=== PATIENT | female | born 1960 | race Caucasian/White ===

== ENCOUNTER 2017-04-21 18:11 | Emergency (ER) | payer MEDICAID ==
[2017-04-21] MEDS ORDERED: Sodium Chloride 0.9% 1,000 ML IV ONE (18:33)
[2017-04-21] MEDS ORDERED: Sodium Chloride 0.9% 10 ML Syringe FLUSH PRN (18:36)
[2017-04-21] MEDS ORDERED: Iopamidol 755 Mg/ML 75 ML Bottle IV ONE (18:37)
--- NOTE | 2017-04-21 18:37 | EDM.PDOC ---
ED HPI GENERAL MEDICAL PROBLEM - General Chief Complaint: General Stated Complaint: GENERAL Time Seen by Provider: 04/21/17 18:28 Source of Information: Reports: Patient History Limitations: Reports: Other (anxious) - History of Present Illness INITIAL COMMENTS - FREE TEXT/NARRATIVE: 57 w f with h/o chronic ETOH abuse, COPD, hematemesis 10 years ago, was seen in the clinic due to N/V in the past 9 days, unable to eat and painless jaundice. Last etoh intake this pm. Pt denies any pain or discomfort but is very anxious. Pt denies any other acute medical issues. Onset: Gradual Onset Date: 04/10/17 Onset Time: 07:00 Duration: Day(s):, Getting Worse Location: Reports: Abdomen Quality: Reports: Other (no paijn) Severity: Moderate Improves with: Reports: None Worsens with: Reports: None Context: Reports: Other (etoh) - Related Data Allergies Allergy/AdvReac Type Severity Reaction Status Date / Time codeine Allergy Itching Verified 04/21/17 18:20 Home Meds: Home Meds Albuterol [Proventil HFA] 2 puff INH Q4H PRN 04/21/14 [History] Famotidine [Pepcid AC] 20 mg PO Q48H 04/21/14 [History] Budesonide/Formoterol Fumarate [Symbicort 160-4.5 Mcg Inhaler] 2 puff IH BID [History] guaiFENesin/Codeine Phosphate [Guaifenesin AC Cough Syrup] 10 ml PO Q4H PRN [History] Acetaminophen [Tylenol Extra Strength] 1,000 mg PO TID PRN 01/17/17 [History] Albuterol Sulfate 3 ml IH Q4H PRN 01/17/17 [History] Benzonatate 200 mg PO TID 01/17/17 [History] Multivitamin [Daily Re] 1 tab PO DAILY 01/17/17 [History] Folic Acid 1 mg PO DAILY #30 tab 04/21/17 [Rx] Iron 18 mg PO DAILY 04/21/17 [History] Multivitamin with Minerals [Multiple Vitamin] 1 tab PO DAILY #30 tablet [Rx] Omeprazole 20 mg PO DAILY #20 cap.cr 04/21/17 [Rx] Ondansetron [Zofran ODT] 4 mg PO Q6H PRN #20 tab.dis 04/21/17 [Rx] Potassium Chloride [Klor-Con 10] 10 meq PO DAILY 04/21/17 [History] Thiamine [Vitamin B-1] 100 mg PO BEDTIME #30 tab 04/21/17 [Rx] Past Medical History HEENT History: Reports: Impaired Vision Other HEENT History: states that she had an infection in her eyes and throat last week. Cardiovascular History: Reports: Heart Failure Respiratory History: Reports: Asthma, COPD Other Respiratory History: hx of pneumonia Gastrointestinal History: Reports: Gastritis Other Gastrointestinal History: hx of bleeding ulcers, divetriculiti, liver disease Genitourinary History: Reports: Renal Calculus Other Genitourinary History: states that she had hx of kidney failure. 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 Musculoskeletal History: Reports: Back Pain, Chronic Psychiatric History: Reports: Anxiety, Depression Hematologic History: Reports: Anemia Other Hematologic History: states that she had previous transfusions. - Infectious Disease History Infectious Disease History: Reports: Chicken Pox, Hepatitis non A,B,C - Past Surgical History GI Surgical History: Reports: Cholecystectomy, Colonoscopy Female Surgical History: Reports: Cervical Conization Social & Family History - Family History Cardiac: Reports: Other (See Below) Other Cardiac Family History: heart attack Respiratory: Reports: Asthma GI: Reports: None Musculoskeletal: Reports: None Neurological: Reports: CVA Psychiatric: Reports: None Endocrine/Metabolic: Reports: None Hematologic: Reports: None Immunologic: Reports: None Oncologic: Reports: Other (See Below) Other Oncologic Family History: throat, lung, breast, brain, pancreatic - Tobacco Use Smoking Status *Q: Current Every Day Smoker Years of Tobacco use: 40 Packs/Tins Daily: 0.5 Used Tobacco, but Quit: Yes Month Tobacco Last Used: 9 days ago - Caffeine Use Caffeine Use: Reports: Coffee - Alcohol Use Days Per Week of Alcohol Use: 4 Number of Drinks Per Day: 2 Total Drinks Per Week: 8 - Recreational Drug Use Recreational Drug Use: No ED ROS GENERAL - Review of Systems Review Of Systems: See Below Constitutional: Reports: Weight Loss HEENT: Reports: No Symptoms Respiratory: Reports: No Symptoms Cardiovascular: Reports: No Symptoms Endocrine: Reports: No Symptoms GI/Abdominal: Reports: Nausea, Vomiting : Reports: No Symptoms Musculoskeletal: Reports: No Symptoms Skin: Reports: Jaundice Neurological: Reports: Tremors Psychiatric: Reports: Anxiety Hematologic/Lymphatic: Reports: No Symptoms Immunologic: Reports: No Symptoms ED EXAM, GENERAL - Physical Exam Exam: See Below Exam Limited By: Other (anxious, resting tremor) General Appearance: Alert, Mild Distress, Thin Eye Exam: Bilateral Eye: Conjunctival Injection (Jaundice) Ears: Normal External Exam Ear Exam: Bilateral Ear: Auricle Normal Nose: Normal Inspection, Normal Mucosa Throat/Mouth: Other (dry mucosal membranes) Head: Atraumatic, Normocephalic Neck: Normal Inspection, Supple, Non-Tender, Full Range of Motion Respiratory/Chest: No Respiratory Distress, Lungs Clear, Normal Breath Sounds, No Accessory Muscle Use Cardiovascular: Normal Peripheral Pulses, Tachycardia Peripheral Pulses: 1+: Femoral (L), Femoral (R) GI/Abdominal: Normal Bowel Sounds, Tender, Mass (RUQ of abdomen) (Female) Exam: Deferred Rectal (Female) Exam: Deferred Back Exam: Normal Inspection, Full Range of Motion Extremities: Normal Inspection, Normal Range of Motion, Non-Tender, No Pedal Edema, Normal Capillary Refill Neurological: Alert, Oriented, CN II-XII Intact, Normal Cognition, Normal Gait, Memory Loss Recent Events Psychiatric: Anxious Skin Exam: Jaundice Lymphatic: No Adenopathy EKG INTERPRETATION EKG Date: 04/21/17 Time: 19:40 Rhythm: NSR Rate (beats/min): 75 [place]: normal P-wave: present QRS: normal ST-T: normal QT: normal Comparison: NA - no prior EKG Course - Vital Signs Text/Narrative:: 57 w f with h/o chronic ETOH abuse, COPD, hematemesis 10 years ago, was seen in the clinic due to N/V in the past 9 days, unable to eat and painless jaundice. Last etoh intake this pm. Pt denies any pain or discomfort but is very anxious. Pt denies any other acute medical issues. PE: tremor, thin wf in no acute distress, painless jaundice, anxiety Labs: Elevated liver enzymes. Imaging: severe liver cirrhosis Impression: Chronic ETOH abuse, Painless jaundice, H/O hematemesis, elevated liver enzymes, Severe liver cirrhosis with portal hypertension. tremor poss ETOH withdrawal. Tx: Ativan, Zofran, NS. Reexam: Pt was eable to eat well in the ed and requested to be discharged with her friend to home. Plan: D/C with instructions Last Recorded V/S: Last Vital Signs Temp 36.8 C 04/21/17 18:28 Pulse 111 H 04/21/17 21:09 Resp 16 04/21/17 18:28 BP 110/77 04/21/17 21:09 Pulse Ox 99 04/21/17 18:28 - Orders/Labs/Meds Orders: Active Orders 24 hr Category Date Time Status EKG Documentation Completion [RC] ASDIRECTED Care 04/21/17 19:30 Active Abdomen Pelvis w Cont [CT] Stat Exams 04/21/17 18:34 Taken Saline Lock Insert [OM.PC] Routine Oth 04/21/17 18:36 Ordered EKG 12 Lead [EK] Routine Ther 04/21/17 19:30 Ordered Labs: Laboratory Tests 04/21/17 04/21/17 04/21/17 Range/Units 18:50 18:50 18:50 PT 13.0 H (8.7-11.1) INR 1.28 H (0.89-1.13) Amylase 57 (28-100) U/L Ethyl Alcohol < 0.01 (<0.01) % Meds: Medications Discontinued Medications Generic Name Dose Route Start Last Admin Trade Name Amara PRN Reason Stop Dose Admin Folic Acid 1 mg 04/21/17 20:24 04/21/17 20:40 Folic Acid PO 04/21/17 20:25 1 mg ONETIME ONE Administration Sodium Chloride 1,000 mls @ 999 mls/hr 04/21/17 18:33 04/21/17 19:11 Normal Saline IV 04/21/17 19:33 999 mls/hr .BOLUS ONE Administration Iopamidol 75 ml 04/21/17 18:37 04/21/17 19:34 Isovue-370 (76%) IV 04/21/17 18:38 69 ml ONETIME ONE Administration Lorazepam 0.5 mg 04/21/17 18:50 04/21/17 19:09 Ativan IVPUSH 04/21/17 18:51 0.5 mg ONETIME ONE Administration Lorazepam 5 mg 04/21/17 20:40 04/21/17 20:44 Ativan IVPUSH 04/21/17 20:41 Not Given Q4H STA Lorazepam 0.5 mg 04/21/17 20:44 04/21/17 20:49 Ativan IVPUSH 04/21/17 20:45 0.5 mg ONETIME STA Administration Multivitamins/Minerals/Vitamin C 1 tab 04/21/17 20:24 04/21/17 20:40 Tab-A-Er PO 04/21/17 20:25 1 tab DAILY STA Administration Ondansetron HCl 8 mg 04/21/17 18:49 04/21/17 19:11 Zofran IVPUSH 04/21/17 18:50 8 mg ONETIME ONE Administration Potassium Chloride 40 meq 04/21/17 19:21 04/21/17 19:25 Klor-Con M20 PO 04/21/17 19:22 40 meq ONETIME ONE Administration Sodium Chloride 10 ml 04/21/17 18:36 04/21/17 20:52 Saline Flush FLUSH 10 ml ASDIRECTED PRN Administration Keep Vein Open Thiamine HCl 100 mg 04/21/17 20:24 04/21/17 20:40 Vitamin B-1 PO 04/21/17 20:25 100 mg ONETIME ONE Administration Departure - Departure Time of Disposition: 20:45 Disposition: Home, Self-Care 01 Condition: good Clinical Impression: Jaundice of recent onset, Hypokalemia - Discharge Information Prescriptions: Folic Acid 1 mg PO DAILY #30 tab Multivitamin with Minerals [Multiple Vitamin] 1 tab PO DAILY #30 tablet Omeprazole 20 mg PO DAILY #20 cap.cr Ondansetron [Zofran ODT] 4 mg PO Q6H PRN #20 tab.dis PRN Reason: Nausea Thiamine [Vitamin B-1] 100 mg PO BEDTIME #30 tab Referrals: Daniel Amin MD [Primary Care Provider] - Forms: ED Department Discharge Additional Instructions: Please refain from ETOH and tobacco use. Please take Thiamin, Folic acid and MVT daily, please follow up with US sonogram this Monday. Please come back to the ed if your symptoms get worse acutely. - My Orders Last 24 Hours: My Active Orders 04/21/17 18:34 Abdomen Pelvis w Cont [CT] Stat 04/21/17 18:36 Saline Lock Insert [OM.PC] Routine 04/21/17 19:30 EKG Documentation Completion [RC] ASDIRECTED EKG 12 Lead [EK] Routine - Assessment/Plan Last 24 Hours: My Active Orders 04/21/17 18:34 Abdomen Pelvis w Cont [CT] Stat 04/21/17 18:36 Saline Lock Insert [OM.PC] Routine 04/21/17 19:30 EKG Documentation Completion [RC] ASDIRECTED EKG 12 Lead [EK] Routine
[2017-04-21] MEDS ORDERED: Ondansetron 4 MG/2 ML SDV IVPUSH ONE (18:49)
[2017-04-21] MEDS ORDERED: LORazepam 2 MG/ML MDV IVPUSH ONE (18:50)
[2017-04-21] MEDS ORDERED: Potassium Chloride 20 MEQ Tab.ER PO ONE (19:21)
[2017-04-21] MEDS ORDERED: Thiamine 100 MG Tab PO ONE (20:24)
[2017-04-21] MEDS ORDERED: Multivitamin Tab PO STA (20:24)
[2017-04-21] MEDS ORDERED: Folic Acid 1 MG Tab PO ONE (20:24)
[2017-04-21] MEDS ORDERED: LORazepam 2 MG/ML MDV IVPUSH STA ×2 (20:40→20:44)
[2017-04-21 21:09] VITALS: BP 110/77
== END 2017-04-21 21:10 | disposition home or self-care (01) ==
LOC: FB.ED 18:11
DX: R17 Unspecified jaundice (principal); E87.6 Hypokalemia; J44.9 Chronic obstructive pulmonary disease, unspecified; K92.0 Hematemesis; F10.10 Alcohol abuse, uncomplicated; K70.30 Alcoholic cirrhosis of liver without ascites; I50.9 Heart failure, unspecified; F41.9 Anxiety disorder, unspecified; F32.9 Major depressive disorder, single episode, unspecified; Z90.49 Acquired absence of other specified parts of digestive tract; Z79.899 Other long term (current) drug therapy; Z88.5 Allergy status to narcotic agent
CPT/HCPCS: 36415; 74177; 80053; 82150; 85025; 85610; 93005; 96361; 96374; 96375; 96376; 99285; A9270; G0480; J2060; J2405; J7040; J7050; Q9967

== ENCOUNTER 2018-01-09 15:56 | Emergency (ER) | payer MEDICAID ==
[2018-01-09] MEDS ORDERED: Ondansetron 4 MG/2 ML SDV IVPUSH ONE (17:00)
[2018-01-09] MEDS ORDERED: Sodium Chloride 0.9% 10 ML Syringe FLUSH PRN (17:00)
[2018-01-09] MEDS ORDERED: Sodium Chloride 0.9% 1,000 ML IV ONE (17:00)
[2018-01-09] MEDS ORDERED: Sodium Chloride 0.9% 250 ML IV SCH (18:00)
[2018-01-09] MEDS ORDERED: Acetaminophen 325 MG Tab PO PRN (18:36)
[2018-01-09] MEDS ORDERED: Ondansetron 4 MG Tab.DIS PO PRN (18:36)
[2018-01-10 14:16] VITALS: BP 101/65
--- NOTE | 2018-01-11 12:33 | ER ---
DATE SEEN: 01/09/2018 TIME SEEN: The patient was seen at 1655 hours. CHIEF COMPLAINT: "Black poop". HISTORY OF PRESENT ILLNESS: This is a 57-year-old woman, who is a known alcoholic and had alcoholic liver disease cirrhosis, who lives at [facility], was seen by Dr. Amin today and noted to have black stools, sent from [facility] to the ED for further evaluation. She has had black poops for 4 days. She feels slightly lightheaded. Has not drunk alcohol for a year. Had asthma attack a week ago. Otherwise, has slightly croupy cough. She denies abdominal pain. CURRENT MEDICATIONS: 1. Thiamin 100 mg at bedtime. 2. Spironolactone 50 mg b.i.d. 3. Potassium chloride 10 mEq daily. 4. Omeprazole 20 mg daily. 5. Multivitamin with mineral. 6. Lactulose 10 g b.i.d. 7. Iron 18 mg daily. 8. Lasix 40 mg daily. 9. Folic acid 1 mg daily. 10.Fluticasone salmeterol 113/14 one puff b.i.d. 11.Budesonide and formoterol (Symbicort) 160/4.5 mcg. 12.Albuterol 2 puffs q.4 hours. ALLERGIES: Codeine. REVIEW OF SYSTEMS: The patient denies headache, neck stiffness, shortness of breath, compromise in vision, difficulty with her teeth. Denies chest pain, irregular heartbeat. Denies abdominal pain, but she has had melena. Denies abdominal discomfort or GERD and has not drunk alcohol for a year. Denies back pain, frequency, urgency, or dysuria. She has mild muscle aches. Mild joint aches. Neuro, negative. No history of seizures or DTs. No history of esophageal varices. PHYSICAL EXAMINATION: VITAL SIGNS: Blood pressure 100/84, heart rate 87, respirations 20, oxygen saturation 98%, and temperature is 37.2. GENERAL: Alert woman, looks older than her age, some loss of subcutaneous tissue noticed in her face. HEENT: PERRLA intact. No nystagmus. Pharynx without abnormality. No blood in her throat. NECK: No cervical adenopathy or thyromegaly or accessory muscle breathing. LUNGS: Clear with rales at the bases posterior. HEART: S1, S2. No irregular rate and rhythm. No tachycardia. No tachypnea. ABDOMEN: Soft. No hepatosplenomegaly. Bowel sounds present. No discomfort. RECTAL: Performed with nurse in room and has one spot of stool which is positive for Hemoccult. MUSCULOSKELETAL: Muscle strength is good. DIAGNOSES: 1. GI bleed proximal to the lower third of the duodenum (probably esophageal varices and/or gastric gastritis). 2. The patient needs an endoscopy. 3. Anemia secondary to blood loss. She has a hemoglobin 8.5 with RBCs low, with total red blood cell count is 2.4 million, hemoglobin 8.5, MCV 1.1%, MCH 34, MCHC 33, RDW 15, platelets 120,000, MPV 11.1 high, monocytes elevated 14.5%, 1% eosinophils, 15% lymphocytes, 68% neutrophils. INR 1.28. PT 13.0. D-dimer 129. Chemistries; hyponatremia, hypochloremia, no evidence for metabolic acidosis with a CO2 of 27, chloride 99, potassium 4.0, sodium 134 (the patient is on potassium supplement and also takes spironolactone). BUN 22, creatinine 1.0, GFR is 57. BUN and creatinine ratio 22 (dehydration). glucose 137, 152 AST, 46 ALT. Troponin less than 0.01. BNP 14 pg/mL. Albumin 2.2. ADDITIONAL DIAGNOSES: 1. Hypoalbuminemia secondary to cirrhosis. 2. Cirrhosis. 3. Alcoholic cirrhosis with liver enzyme transaminasemia. 4. No evidence for acute renal failure. Chronic kidney disease. 5. Mild auto anticoagulation with INR 1.28 secondary to liver changes from alcohol. 6. Hyponatremia. 7. Hypochloremia. 8. Low platelets secondary to previous alcoholism. PLAN: The patient received a unit of packed red cells this evening and unit of packed red cells tomorrow, and follow up with doctor this week. /[id number] TAYLOR/VIMALL
--- NOTE | 2018-01-12 10:55 | ER ---
DATE SEEN: 01/09/2018 The patient has been notified of potential complications of blood transfusion, which are infection, (15 different bacteria can occur), hemolytic reaction, allergic reaction to the medicine and AV incompatibility reaction. HIV is 1:2,000,000, hepatitis B 1:300,000, hepatitis C 1:1,500,000, and West Nile 1:350,000. The patient felt comfortable with this discussion. She is going to have the blood transfusions. /[id number] TAYLOR/AMAN PELAEZ
--- OUTSIDE RECORDS SUMMARY | 2018-03-21 15:12 | XMSREPORT | Summary of Care ---
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 Type A Rh Type Negative Expiration Date 03/14/2018 23:59 Antibody Screen Negative Comment: Allogenic Red Cells Available 03/11/2018 ER Exam 19 Specimen Performing Laboratory [address] BLOOD BANK [address] [place] [id number] PTT (03/11/2018 9:35 PM) Component Value Ref Range APTT 33 24 - 35 secs Specimen Performing Laboratory [address] [address] PROTIME/INR (03/11/2018 9:35 PM) Component Value Ref Range Protime 17.5 (H) 12.0 - 14.5 secs INR 1.5 (L) 2.0 - 3.5 [place]imen [place] [address] Narrative Normal INR reference range (patients not on oral anticoagulants)0.9-1.1. INR Standard Intensity=(2.0 - 3.0) INR Higher Intensity=(2.5 - 3.5) LIPASE (03/11/2018 9:35 PM) Component Value Ref Range Lipase 42 5 - 80 U/L Specimen Performing Laboratory Blood [address] [address] COMPREHENSIVE METABOLIC PANEL (03/11/2018 9:35 PM) Component Value Ref Range Glucose 101 (H) 70 - 100 mg/dL BUN 11 6 - 22 mg/dL Creatinine 0.80 0.60 - 1.10 mg/dL BUN/Creatinine Ratio 13.8 10.0 - 25.0 Sodium 139 135 - 145 meq/L Potassium 3.8 3.5 - 5.3 meq/L Chloride 108 99 - 110 meq/L CO2 18 (L) 20 - 29 meq/L Anion Gap with K 17 6 - 20 meq/L Calcium 8.9 8.5 - 10.5 mg/dL Protein Total 7.5 6.0 - 8.2 g/dL Albumin 3.0 (L) 3.5 - 5.0 g/dL Alkaline Phosphatase 161 (H) 30 - 150 U/L AST - SGOT 92 (H) 0 - 35 U/L ALT - SGPT 32 0 - 55 U/L Bilirubin Total 3.0 (H) 0.2 - 1.2 mg/dL Corrected Calcium 9.7 8.5 - 10.5 mg/dL Age 57 Years eGFR Non- 74 >=60 mL/min/1.73m2 eGFR 89 >=60 mL/min/1.73m2 Specimen Performing Laboratory Blood [address] [place] [address] COMPLETE BLOOD COUNT WITH DIFFERENTIAL (03/11/2018 9:35 PM) Specimen Performing Laboratory Blood Narrative The following orders were created for panel order COMPLETE BLOOD COUNT WITH DIFFERENTIAL. Procedure Abnormality Status --------- ------ LAB ONLY-COMPLETE BLOOD ...[[id number]]AbnormalFinal result Please view results for these tests on the individual orders. EKG 12 LEAD (03/11/2018 9:28 PM) Component Value Ref Range EKG WAVEFORM Sinus tachycardia: Nonspecific ST abnormality: Abnormal ECG Ventricular Rate: 122 BPM Atrial Rate: 122 BPM P-R Interval: 128 ms QRS Duration: 94 ms Q-T Interval: 344 ms QTC Calculation(Bazett): 490 ms Calculated P Pinckney: 51 degrees Calculated R [place]ck[place]: 69 degrees Calculated T Pinckney: 71 degrees OCCULT BLOOD, DIAGNOSTIC (GUAIAC) POCT (03/11/2018 9:20 PM) Component Value Ref Range Occult Blood Positive (A) Negative Specimen Performing Laboratory Feces [address] [place] [address] in this encounter Visit Diagnoses Diagnosis Gastrointestinal hemorrhage, unspecified gastrointestinal hemorrhage type - Primary Acute alcoholic intoxication with complication Hyperammonemia Disorders of urea cycle metabolism Hypomagnesemia Disorders of magnesium metabolism Gastroesophageal reflux disease without esophagitis Esophageal reflux Alcoholic cirrhosis of liver with ascites Alcoholic cirrhosis of liver Upper GI bleed Hemorrhage of gastrointestinal tract, unspecified End stage liver disease in this encounter Administered Medications Medication Order MAR Action Action Date Dose Rate Site albuterol (PROVENTIL) (2.5 mg/3mL) Given 03/12/2018 23:56 CDT 2.5 mg 0.083% inhalation soln 2.5 mg 2.5 mg, Nebulization, Every four hours prn, Starting Mon03/12/18 at 0119, Until Discontinued, shortness of breath, wheezing, cough, 3 mL, Formulary Substitute for albuterol HFA while in the hospital cyanocobalamin (vitamin B-12) (Vitamin B-12) Given 03/12/2018 09:40 CDT 250 mcg tablet 250 mcg 250 mcg, Oral, Daily, First dose on Mon03/12/18 at 0900, Until Discontinued, If alert and not vomiting Given 03/13/2018 08:25 CDT 250 mcg Given 03/14/2018 09:48 CDT 250 mcg fluticasone-vilanterol (BREO ELLIPTA) 200-25 Given 03/12/2018 08:25 CDT 1 puff mcg/puff inhaler 1 puff 1 puff, Inhalation, Daily, First dose on Mon03/12/18 at 0900, Until Discontinued, Formulary Substitute for budesonide-formoterol (Symbicort) while in the hospital Given 03/13/2018 08:01 CDT 1 puff Given 03/14/2018 08:48 CDT 1 puff folic acid tablet 1 mg Given 03/12/2018 09:40 CDT 1 mg 1 mg, Oral, Daily, First dose on Mon03/12/18 at 0900, Until Discontinued, If alert and not vomiting: Given 03/13/2018 08:25 CDT 1 mg Given 03/14/2018 09:47 CDT 1 mg magnesium oxide tablet 250 mg Given 03/14/2018 10:51 CDT 250 mg 250 mg, Oral, Two times a day, First dose on Mon03/14/18 at 1030, Until Discontinued omeprazole (priLOSEC) capsule 20 mg Given 03/13/2018 08:25 CDT 20 mg 20 mg, Oral, Two times a day before meals, First dose on Mon03/13/18 at 0800, Until Discontinued, Swallow cap whole. Do not crush, chew or open. Given 03/13/2018 17:52 CDT 20 mg Given 03/14/2018 06:21 CDT 20 mg ondansetron (ZOFRAN) injection solution 4 mg Given 03/12/2018 01:49 CDT 4 mg 4 mg, IV, Every four hours prn, Starting Mon03/12/18 at 0020, Until Discontinued, nausea, vomiting, 2 mL, Use SECOND. If effective after 30 minutes and oral also given, use prochlorperazine IV Given 03/13/2018 00:30 CDT 4 mg Given 03/13/2018 09:19 CDT 4 mg potassium & sodium phosphates (PHOS-NaK) Given 03/14/2018 10:51 CDT 1 packet 280-160-250 MG packet 1 packet 1 packet, Oral, Two times a day, First dose on Mon03/14/18 at 1030, Until Discontinued thiamine (vitamin B-1) tablet 100 mg Given 03/12/2018 09:40 CDT 100 mg 100 mg, Oral, Daily, First dose on Mon03/12/18 at 0900, Until Discontinued, If alert and not vomiting Given 03/13/2018 08:25 CDT 100 mg Given 03/14/2018 09:47 CDT 100 mg Medication Order MAR Action Action Date Dose Rate Site cefTRIAXone (ROCEPHIN) 1000 Given 03/12/2018 02:38 CDT 1,000 mg 40 mL/hr mg/10 mL IV syringe in sterile water 1,000 mg, IV, at 40 mL/hr, Every twenty four hours, 3 doses, First dose on Mon03/12/18 at 0200, Last dose on Mon03/14/18 at 0200, 10 mL, Give 3 doses, then switch to oral ciprofloxacin Given 03/13/2018 02:47 CDT 1,000 mg 40 mL/hr Given 03/14/2018 01:38 CDT 1,000 mg 40 mL/hr fentaNYL 100 mcg/2 mL preservative free Given 03/12/2018 12:22 CDT 100 mcg injection solution 0-200 mcg 0-200 mcg, IV, PRN per parameter, Starting Mon03/12/18 at 1203, Until Mon03/12/18 at 1303, pain, severe pain, procedural use under direction of provider, 4 mL, Pre-Procedure (GI), procedural area to release, Do NOT administer on the floor. Procedure only medication. Provider must be present. Note: If not administered for procedure, please discontinue on transfer back to the floor. Max total dose of 350 mcg; Given 03/12/2018 12:31 CDT 25 mcg lactulose oral solution (10 gm/15 mL) 15 mL Given 03/12/2018 20:09 CDT 15 mL 15 mL, Oral, Two times a day, First dose on Mon03/12/18 at 2100, Until Discontinued, 15 mL, Titrate to 1-2 bowel movements daily Given 03/13/2018 08:25 CDT 15 mL lidocaine PF 4 % preservative free injection Given 03/12/2018 12:18 CDT 120 mg solution 120 mg 120 mg (3 mL), Mouth/Throat, One time, 1 dose, Mon03/12/18 at 1205, 5 mL, Pre-Procedure (GI), procedural area to release, 3 mL to oral pharynx with atomizer or gargle. Do NOT administer on the floor. Procedural ONLY product. Provider must be present. magnesium sulfate 2 gm/50 mL IV solution 2 g Given 03/12/2018 07:48 CDT 2 g 2 g, IV, Now, 1 dose, Mon03/12/18 at 0700, 50 mL metoclopramide (REGLAN) inj soln 5 mg Given 03/13/2018 13:35 CDT 5 mg 5 mg, IV, Four times a day, 3 doses, First dose on Mon03/13/18 at 1300, Last dose on Mon03/13/18 at 2100, 2 mL Given 03/13/2018 17:51 CDT 5 mg Given 03/13/2018 21:42 CDT 5 mg midazolam (VERSED) injection solution 0-10 mg Given 03/12/2018 12:21 CDT 4 mg 0-10 mg, IV, PRN per parameter, Starting Mon03/12/18 at 1203, Until Mon03/12/18 at 1303, other (Specify), procedural use under direction of provider, 10 mL, Pre-Procedure (GI), procedural area to release, Do NOT administer on the floor. Procedure only medication. Provider must be present. Note: If not administered for procedure, please discontinue on transfer back to the floor. Max total dose of 10 mg. Given 03/12/2018 12:24 CDT 1 mg Given 03/12/2018 12:31 CDT 1 mg multivitamins, adult (MVI-12) OP/ED Infusion Started 03/11/2018 22:05 CDT 250 mL/hr 10 mL, thiamine 100 mg, magnesium sulfate 2,000 mg in sodium chloride 0.9% 1,000 mL Banana bag IV, at 250 mL/hr, One time, 1 dose, 03/11/18 at 2225, 1,015 mL nadolol (CORGARD) tablet 40 mg Given 03/12/2018 16:07 CDT 40 mg 40 mg, Oral, Daily, First dose on Mon03/12/18 at 1500, Until Discontinued Given 03/13/2018 08:25 CDT 40 mg Given 03/14/2018 09:48 CDT 40 mg octreotide (sandoSTATIN) 4 mcg/mL New Bag 03/12/2018 02:31 CDT 50 mcg/hr 12.5 mL/hr IV infusion 50 mcg/hr (12.5 mL/hr), IV, at 12.5 mL/hr, Continuous, Starting Mon03/12/18 at 0125, Until Mon03/12/18 at 1348, 250 mL octreotide acetate (sandoSTATIN) injection Given 03/12/2018 01:41 CDT 50 mcg solution 50 mcg 50 mcg, IV, One time, 1 dose, Mon03/12/18 at 0125, 1 mL pantoprazole (PROTONIX) for injection 40 mg vial Given 03/12/2018 01:35 CDT 40 mg 40 mg, IV, Two times a day, 6 doses, First dose on Mon03/12/18 at 0030, Last dose on Mon03/14/18 at 0900, Dilute 40 mg vial with 10 mL normal saline=4 mg/mL. Give 6 doses, then begin oral proton pump inhibitor. Given 03/12/2018 09:42 CDT 40 mg phytonadione (vitamin K) (MEPHYTON) tablet 5 mg Given 03/12/2018 14:42 CDT 5 mg 5 mg, Oral, One time, 1 dose, Mon03/12/18 at 1220 prochlorperazine (COMPAZINE) injection solution 5 Given 03/12/2018 04:45 CDT 5 mg mg 5 mg, IV, Every six hours prn, Starting Mon03/12/18 at 0020, Until Mon03/13/18 at 1132, nausea, vomiting, 2 mL, Use THIRD. If ineffective after 30 minutes and ondansetron oral and IV given, call physician for alternative. sodium chloride 0.9% IV solution New Bag 03/12/2018 02:32 CDT 100 mL/hr IV, at 100 mL/hr, Continuous, Starting 03/12/18 at 0135, Until 03/12/18 at 1554, 1,000 mL sodium chloride 0.9% IV solution New Bag/Tubing 03/12/2018 12:14 CDT 500 mL/hr IV, at 500 mL/hr, Continuous, Starting Mon03/12/18 at 1205, Until 03/12/18 at 1303, 1,000 mL, Pre-Procedure (GI), procedural area to release sodium chloride 0.9% IV solution New Bag 03/13/2018 13:35 CDT 75 mL/hr IV, at 75 mL/hr, Continuous, Starting 03/13/18 at 1235, Until 03/14/18 at 1026, 1,000 mL New Bag 03/14/2018 01:38 CDT 75 mL/hr in this encounter
== END 2018-01-09 19:12 | disposition home or self-care (01) ==
LOC: FB.ED 15:56 → FB.MS 18:36 → FB.ED 19:12
DX: D50.0 Iron deficiency anemia secondary to blood loss (chronic) (principal); E88.09 Other disorders of plasma-protein metabolism, not elsewhere classified; K70.30 Alcoholic cirrhosis of liver without ascites; E87.1 Hypo-osmolality and hyponatremia; E87.8 Other disorders of electrolyte and fluid balance, not elsewhere classified; D69.6 Thrombocytopenia, unspecified; Z79.899 Other long term (current) drug therapy; Z88.5 Allergy status to narcotic agent; K92.2 Gastrointestinal hemorrhage, unspecified
CPT/HCPCS: 36415; 36430; 80053; 80305; 81001; 82272; 85025; 86850; 86900; 86901; 86920; 86922; 93005; 99285; G0480; P9016; 93010; 99284

== ENCOUNTER 2020-11-26 20:32 | Emergency (ER) | payer MEDICAID ==
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
[2020-11-26] MEDS: Ketorolac 60 MG/2 ML SDV IM ONE (21:27)
[2020-11-26] MEDS: Orphenadrine 60 MG/2 ML Inj IM ONE (22:15)
[2020-11-26] MEDS: predniSONE 20 MG Tab PO ONE (22:15)
[2020-11-26 22:56] VITALS: BP 126/103; PULSE 65
== END 2020-11-26 23:18 | disposition home or self-care (01) ==
LOC: FB.ED 20:32
DX: M53.3 Sacrococcygeal disorders, not elsewhere classified (principal); M54.5 Low back pain; I11.0 Hypertensive heart disease with heart failure; I50.9 Heart failure, unspecified; J44.9 Chronic obstructive pulmonary disease, unspecified; F17.210 Nicotine dependence, cigarettes, uncomplicated; Z88.5 Allergy status to narcotic agent; Z79.899 Other long term (current) drug therapy
CPT/HCPCS: 72100; 72192; 96372; 99284; J1885; J2360; J7512

== ENCOUNTER 2022-05-16 13:55 | Emergency (ER) | payer MEDICAID ==
[2022-05-16] MEDS ORDERED: Sodium Chloride 0.9% 10 ML Syringe FLUSH PRN (14:18)
[2022-05-16] MEDS ORDERED: LORazepam 1 MG Tab PO ONE (14:20)
[2022-05-16] MEDS ORDERED: Thiamine 100 MG Tab PO ONE (14:20)
[2022-05-16 14:43] LABS: ESTIMATED GFR 28 mL/min (>60)
[2022-05-16] MEDS ORDERED: NS + KCl 20mEq/L 1,000 ML IV SCH ×2 (15:00→17:30)
[2022-05-16 19:41] VITALS: BP 133/68; PULSE 92
== END 2022-05-16 19:26 | disposition home or self-care (01) ==
LOC: FB.ED 13:55
DX: F15.90 Other stimulant use, unspecified, uncomplicated (principal); E87.6 Hypokalemia; J44.9 Chronic obstructive pulmonary disease, unspecified; I11.0 Hypertensive heart disease with heart failure; I50.9 Heart failure, unspecified; Z88.5 Allergy status to narcotic agent; Z79.899 Other long term (current) drug therapy
CPT/HCPCS: 36415; 80053; 80307; 81001; 82140; 83605; 83735; 85027; 96365; 96366; 99284; A9270; J3480; J3490; 99283

== ENCOUNTER 2022-10-12 04:40 | Inpatient (IN) | payer MEDICAID ==
[2022-10-12] MEDS: Sodium Chloride 0.9% 10 ML Syringe FLUSH PRN ×2 (05:30→14:39)
[2022-10-12 05:53] LABS: ESTIMATED GFR 56 mL/min (>60)
[2022-10-12] MEDS ORDERED: Potassium Chloride 20 MEQ in Premix Bag 1 BAG IV ONE (07:06)
[2022-10-12] MEDS: Sodium Chloride 0.9% 1,000 ML IV SCH ×3 (07:11→17:38)
[2022-10-12] MEDS ORDERED: Iopamidol 755 Mg/ML 75 ML Bottle IV ONE (10:40)
[2022-10-12] MEDS ORDERED: Albuterol 0.083% 2.5 MG/3 ML Neb Soln NEB PRN (11:15)
[2022-10-12] MEDS ORDERED: Lactulose Soln 10 GM/15 ML 15 ML UD Cup PO PRN (11:16)
[2022-10-12] MEDS ORDERED: cefTRIAXone 1 GM in Sodium Chloride 0.9% 50 ML IV SCH (14:15)
[2022-10-12] MEDS: cefTRIAXone 1 GM Vial IVPUSH SCH (14:37)
[2022-10-12] MEDS: Albuterol 0.083% 2.5 MG/3 ML Neb Soln NEB SCH ×2 (15:39→20:57)
[2022-10-12] MEDS: Lactulose Soln 10 GM/15 ML 15 ML UD Cup PO SCH (20:57)
[2022-10-13] MEDS: Sodium Chloride 0.9% 1,000 ML IV SCH ×2 (01:30→09:34)
[2022-10-13] MEDS: traMADol 50 MG Tab PO PRN (05:55)
[2022-10-13] MEDS: Albuterol 0.083% 2.5 MG/3 ML Neb Soln NEB SCH ×4 (06:22→20:18)
[2022-10-13 07:03] LABS: ESTIMATED GFR 72 mL/min (>60)
[2022-10-13] MEDS: Magnesium Oxide 400 MG Tab PO SCH ×2 (09:23→20:24)
[2022-10-13] MEDS: Lactulose Soln 10 GM/15 ML 15 ML UD Cup PO SCH ×2 (09:23→20:17)
[2022-10-13] MEDS: Ofloxacin 0.3% Ophth Soln 5 ML Bottle EYEBOTH SCH ×4 (09:23→20:17)
[2022-10-13] MEDS: Potassium Chloride 100 ML IV SCH ×2 (09:24→11:14)
[2022-10-13] MEDS: cefTRIAXone 1 GM Vial IVPUSH SCH (15:14)
[2022-10-13] MEDS: Sodium Chloride 0.9% 10 ML Syringe FLUSH PRN (15:16)
[2022-10-13] MEDS: NS + KCl 20mEq/L 1,000 ML IV SCH (17:16)
[2022-10-13] MEDS: Carvedilol 6.25 MG Tab PO SCH (20:26)
[2022-10-14] MEDS: Ofloxacin 0.3% Ophth Soln 5 ML Bottle EYEBOTH SCH ×6 (01:00→20:09)
[2022-10-14] MEDS: NS + KCl 20mEq/L 1,000 ML IV SCH (01:00)
[2022-10-14] MEDS: Albuterol 0.083% 2.5 MG/3 ML Neb Soln NEB SCH ×4 (06:50→20:08)
[2022-10-14 07:05] LABS: ESTIMATED GFR 97 mL/min (>60)
[2022-10-14] MEDS: Lactulose Soln 10 GM/15 ML 15 ML UD Cup PO SCH ×2 (08:04→20:08)
[2022-10-14] MEDS: Magnesium Oxide 400 MG Tab PO SCH ×3 (08:24→20:08)
[2022-10-14] MEDS: Carvedilol 6.25 MG Tab PO SCH ×2 (08:24→20:08)
[2022-10-14] MEDS: Spironolactone 50 MG Tab PO SCH (08:25)
[2022-10-14] MEDS: Potassium Chloride 20 MEQ Tab.ER PO SCH ×3 (08:25→20:09)
[2022-10-14] MEDS: traMADol 50 MG Tab PO PRN (12:00)
[2022-10-14] MEDS: cefTRIAXone 1 GM Vial IVPUSH SCH (13:40)
[2022-10-14] MEDS: Sodium Chloride 0.9% 10 ML Syringe FLUSH PRN (13:45)
[2022-10-14] MEDS: Pantoprazole 40 MG Tab.CR PO SCH (16:31)
[2022-10-14] MEDS: Nicotine 7 MG/24 Hr Patch TRDERM SCH (21:54)
[2022-10-15] MEDS: Ofloxacin 0.3% Ophth Soln 5 ML Bottle EYEBOTH SCH ×6 (00:38→20:08)
[2022-10-15] MEDS: Albuterol 0.083% 2.5 MG/3 ML Neb Soln NEB SCH ×4 (06:35→20:09)
[2022-10-15] MEDS: Pantoprazole 40 MG Tab.CR PO SCH ×2 (06:43→16:30)
[2022-10-15 06:58] LABS: ESTIMATED GFR 97 mL/min (>60)
[2022-10-15] MEDS: Carvedilol 6.25 MG Tab PO SCH ×2 (08:36→20:07)
[2022-10-15] MEDS: Lactulose Soln 10 GM/15 ML 15 ML UD Cup PO SCH ×2 (08:36→20:06)
[2022-10-15] MEDS: Potassium Chloride 20 MEQ Tab.ER PO SCH ×3 (08:36→20:07)
[2022-10-15] MEDS: Spironolactone 50 MG Tab PO SCH (08:36)
[2022-10-15] MEDS: Magnesium Oxide 400 MG Tab PO SCH ×2 (08:37→14:59)
[2022-10-15] MEDS: Nicotine 7 MG/24 Hr Patch TRDERM SCH (08:42)
[2022-10-15] MEDS: Sodium Chloride 0.9% 10 ML Syringe FLUSH PRN (08:45)
[2022-10-15] MEDS: cefTRIAXone 1 GM Vial IVPUSH SCH (14:57)
[2022-10-15] MEDS ORDERED: Magnesium Oxide 400 MG Tab PO SCH (21:00)
[2022-10-16 06:46] LABS: ESTIMATED GFR 83 mL/min (>60)
[2022-10-16] MEDS: Pantoprazole 40 MG Tab.CR PO SCH (06:57)
[2022-10-16] MEDS: Albuterol 0.083% 2.5 MG/3 ML Neb Soln NEB SCH ×2 (06:57→11:00)
[2022-10-16] MEDS: Spironolactone 50 MG Tab PO SCH (08:40)
[2022-10-16] MEDS: Carvedilol 6.25 MG Tab PO SCH (08:41)
[2022-10-16] MEDS: Lactulose Soln 10 GM/15 ML 15 ML UD Cup PO SCH (08:41)
[2022-10-16] MEDS: Potassium Chloride 20 MEQ Tab.ER PO SCH (08:42)
[2022-10-16] MEDS: Ofloxacin 0.3% Ophth Soln 5 ML Bottle EYEBOTH SCH (08:45)
[2022-10-16] MEDS ORDERED: Magnesium Oxide 400 MG Tab PO SCH (09:00)
[2022-10-16] MEDS: Nicotine 7 MG/24 Hr Patch TRDERM SCH (09:19)
[2022-10-16] MEDS: traMADol 50 MG Tab PO PRN (10:58)
[2022-10-16 12:15] VITALS: BP 131/84; PULSE 71
[2022-10-16] MEDS: cefTRIAXone 1 GM Vial IVPUSH SCH (14:15)
== END 2022-10-16 14:24 | disposition home health service (06) | DRG 640 ==
LOC: FB.ED 04:40 → FB.MS 08:40 → OBSVTOIN 11:12
PROVIDERS: ADMIT Family Medicine; ATTEND Family Medicine
DX: E87.6 Hypokalemia (principal); G93.41 Metabolic encephalopathy; N30.01 Acute cystitis with hematuria; E83.42 Hypomagnesemia; K70.30 Alcoholic cirrhosis of liver without ascites; R19.00 Intra-abdominal and pelvic swelling, mass and lump, unspecified site; H10.33 Unspecified acute conjunctivitis, bilateral; J45.20 Mild intermittent asthma, uncomplicated; Z66 Do not resuscitate; Z51.5 Encounter for palliative care; H54.7 Unspecified visual loss; I50.9 Heart failure, unspecified; I11.0 Hypertensive heart disease with heart failure; D64.9 Anemia, unspecified; F17.200 Nicotine dependence, unspecified, uncomplicated; Z88.5 Allergy status to narcotic agent; Z86.718 Personal history of other venous thrombosis and embolism; Z79.01 Long term (current) use of anticoagulants
CPT/HCPCS: 36415; 71045; 72148; 74177; 76857; 80048; 80053; 80307; 81001; 82140; 82378; 83605; 83735; 84132; 85025; 85610; 87086; 94640; 96365; 97110-GO; 97161-GP; 97165-GO; 97530-GO; 99285-25; A9270-GY; J0696; J3480; J3490; J7030; Q9967